=== PATIENT | female | born 1980 | race Caucasian/White ===

== ENCOUNTER 2023-11-04 21:17 | Inpatient (IN) ==
[2023-11-04] MEDS ORDERED: LORazepam 2 MG/ML 1 mL Syringe IV SCH (23:00)
[2023-11-04 23:09] LABS: Urine Benzodiazepine Screen None Detected (None Detect); Urine Cannabinoids Screen Presumptive Positive (None Detect); Urine Opiates Screen None Detected (None Detect)
[2023-11-04 23:27] LABS: ABS Basophils 0.1 10^3/uL (0.0-0.1); ABS Eosinophils 0.2 10^3/uL (0.0-0.5); ABS Lymphocytes 2.6 10^3/uL (1.0-4.8); ABS Monocytes 0.4 10^3/uL (0.0-0.9); ABS Neutrophils 6.7 10^3/uL (1.5-7.6); ABS Nucleated RBC 0.02 10^3/ul; Hematocrit 44.8 % (35-45); Hemoglobin 15.7 g/dL (11.5-14.3); Lymphocyte % 25.7 %; Mean Corpuscular Hemoglobin 32.1 pg (27-33); Mean Corpuscular Hgb Conc 35.1 g/dL (31-36); Mean Corpuscular Volume 91.4 fL (80-97); Mean Platelet Volume 7.3 fL (7.5-11.2); Nucleated Red Blood Cells % 0.2 %/100WBC (0.0-0.8); Platelet Count 243 10^3/uL (150-450); Red Cell Distribution Width 15.3 % (12-17)
[2023-11-04 23:47] LABS: Urine Appearance Cloudy; Urine Color Yellow
[2023-11-04 23:48] LABS: Urine Bilirubin 3+ (Large) (Negative); Urine Blood Negative (Negative); Urine Ketones 3+ (80mg/dL) (Negative); Urine Nitrite Negative (Negative); Urine Protein 2+ (100 mg/dL) (Negative); Urine Specific Gravity 1.025 (1.005-1.030); Urine Urobilinogen >=8.0 (Negative)
[2023-11-05 00:10] LABS: ALT 23 U/L (7-52); AST 31 U/L (13-39); Acetaminophen < 15 mcg/mL; Albumin 4.4 g/dL (3.2-5.2); Albumin/Globulin Ratio 1.3 (1-3); Alcohol, S < 13 mg/dL (<13); Alkaline Phosphatase 124 U/L (35-149); Anion Gap 12 mmol/L (2-16); Blood Urea Nitrogen 11 mg/dL (6-24); CO2 Carbon Dioxide 25 mmol/L (22-32); Calcium 9.7 mg/dL (8.6-10.3); Chloride 96 mmol/L (101-111); Creatinine, Serum 0.77 mg/dL (0.51-0.95); Globulin 3.3 g/dL (2-4); Glucose 117 mg/dL (70-100); Potassium 3.6 mmol/L (3.5-5.0); Salicylate < 2.50 mg/dL (<30); Sodium 133 mmol/L (135-145); Total Bilirubin 0.7 mg/dL (0.2-1.0); Total Protein 7.7 g/dL (6.4-8.9); eGFR CKD-EPI 99.3 (>60)
[2023-11-05] MEDS: Thiamine 100 MG/ML 2 ml VIAL 100 MG, Folic Acid IV 1 MG, Multiple Vitamin IV ADULT 10 M... IV ONE (00:15)
[2023-11-05 00:16] LABS: HCG Pregnancy < 0.60 mIU/mL
[2023-11-05 00:40] LABS: Urine Bacteria 1+ /HPF (Absent); Urine Red Blood Cell Trace(0-2/hpf) /HPF (0-Trace); Urine Squamous Epithelial Cell Present /HPF (Absent); Urine White Blood Cell 2+(11-20/hpf) /HPF (0-Trace)
[2023-11-05 00:52] LABS: TSH Ultra Thyroid Stim Horm 61.46 mcIU/mL (0.34-5.60)
[2023-11-05] MEDS ORDERED: Al Hydrox/Mg Hydrox/Simet LIQ 30 ML UDC PO PRN (03:20)
[2023-11-05] MEDS: Vitamin THERAPEUTIC TAB PO SCH (09:24)
[2023-11-05 11:11] LABS: T4, Total 11.55 mcg/dL (6.09-12.23)
[2023-11-05 11:21] LABS: Total T3 115 ng/dL (87-178)
[2023-11-05] MEDS: Nicotine GUM 2MG FRUIT FLAVOR PO ONE (21:15)
[2023-11-05] MEDS ORDERED: Nicotine GUM 2MG FRUIT FLAVOR PO PRN (21:48)
[2023-11-06 09:13] LABS: HDL Cholesterol 29.4 mg/dL
[2023-11-06] MEDS: Nicotine PATCH 7 MG/24 HR PATCH TRANSDERM SCH (11:44)
[2023-11-06] MEDS: Nicotine PATCH 7 MG/24 HR PATCH ONE (15:25)
[2023-11-08 08:39] VITALS: BP 129/99
== END 2023-11-08 13:25 | disposition home or self-care (01) | DRG 885 ==
LOC: ED 21:17 → EDHOLD 11-05 02:24 → BSU 11-05 03:01
PROVIDERS: ADMIT Psychiatry & Neurology Psychiatry; ATTEND Psychiatry & Neurology Psychiatry